=== PATIENT | female | born 1985 | race Asian ===

== ENCOUNTER 2021-03-27 10:40 | Emergency (ER) | payer OTHER ==
[2021-03-27 12:19] LABS: CORONAVIRUS 2019 SARS-COV-2 NEGATIVE (NEGATIVE); INFLUENZA A NAA NEGATIVE (NEGATIVE)
[2021-03-27 13:32] LABS: BASOPHIL 0.5 % (0-2); BILIRUBIN NEGATIVE (NEGATIVE); BLOOD NEGATIVE Ery/uL (NEGATIVE); CLARITY CLEAR (CLEAR); COLOR YELLOW (YELLOW); EOSINOPHIL 1.9 % (0-5); GLUCOSE (U) NORMAL (NORMAL); HCT 37.4 % (37.0-47.0); HGB 11.9 g/dl (12.5-16.0); LEUKOCYTES NEGATIVE Leu/uL (NEGATIVE); LYMPHOCYTE 27.7 % (15-48); MCH 26.8 pg (25.0-31.0); MCHC 31.8 g/dL (32.0-36.0); MCV 84.2 fL (78.0-100.0); MONOCYTE 7.6 % (0-12); NEUTROPHIL 61.7 % (41-80); NITRITE NEGATIVE (NEGATIVE); NRBC 0; PLT 441 K/uL (150-400); PROTEIN NEGATIVE (NEGATIVE); RBC 4.44 M/uL (4.20-5.40); RDW 12.7 % (11.5-14.0); SPECIFIC GRAVITY 1.025 (1.001-1.030); UROBILINOGEN 0.2 mg/dL (0.2-1.0); WBC 10.4 K/uL (4.0-10.5)
[2021-03-27 13:49] LABS: BUN/CREAT RATIO (CALC) 11.4 RATIO; CREATININE 0.88 mg/dL (0.51-0.95); POTASSIUM 3.9 mmol/L (3.5-5.1)
== END 2021-03-27 15:45 | disposition home or self-care (01) ==
LOC: FER 10:40
PROVIDERS: Emergency Medicine; Nurse Practitioner Family
DX: O98.519 Other viral diseases complicating pregnancy, unspecified trimester (principal); B34.9 Viral infection, unspecified; Z20.822 Contact with and (suspected) exposure to COVID-19
CPT/HCPCS: 36415; 80048; 81003; 85025; 87880; 99283; J7030; U0002